=== PATIENT | male | born 1950 | race Caucasian/White ===

== ENCOUNTER 2021-04-22 07:15 | Inpatient (IN) ==
[2021-04-22 09:18] LABS: Basophils # 0.1 K/mcL (0.0-0.2); Eosinophils # 0.5 K/mcL (0.0-0.6); Hematocrit 43.9 % (37.5-50.1); Hemoglobin 14.2 g/dL (12.9-16.9); Immature Granulocytes % 0.3 % (0-4); Lymphocytes # 0.9 K/mcL (0.6-4.6); Lymphocytes % 14.9 %; Mean Corpuscular HGB Conc 32.3 g/dL (31.6-35.5); Mean Corpuscular Volume 89.6 fL (83.0-100.0); Mean Platelet Volume 10.3 fL (9.4-12.4); Monocytes # 0.7 K/mcL (0.0-1.3); Monocytes % 11.9 %; Neutrophils # 3.8 K/mcL (1.6-8.9); Platelet Count 239 K/mcL (140-400); Red Cell Distribution Width 14.1 % (11.5-14.5); Segmented Neutrophils % 63.9 %; White Blood Count 5.9 K/mcL (4.3-11.1)
[2021-04-22 09:35] LABS: BUN/Creatinine Ratio 19 (6-26); Blood Urea Nitrogen 19 mg/dL (8-23); Calcium 8.8 mg/dL (8.6-10.3); Carbon Dioxide 27 mEq/L (23-29); Chloride 102 mEq/L (98-107); Glucose 109 mg/dL (70-105); Osmolality,Calculated 283 (280-300); Potassium 4.2 mEq/L (3.5-5.1); Sodium 135 mEq/L (136-145); eGFR For African Americans > 60 (> 60); eGFR For Non-African Americans > 60 (> 60)
[2021-04-22] MEDS ORDERED: Ondansetron 4 MG/2 ML VIAL IVP PRN (10:54)
[2021-04-22] MEDS ORDERED: Naloxone 0.4 MG/ML INJ IVP PRN (10:54)
[2021-04-22] MEDS ORDERED: *HR* HYDROcodone/Acet 5/325 mg TABLET PO PRN (11:08)
[2021-04-22] MEDS: cefTRIAXone 2,000 MG in Water for inj. (sterile) 10 ML IVP SCH (12:29)
[2021-04-22] MEDS: 0.9 % Sodium Chloride 1,000 ML IVC SCH ×2 (12:30→20:26)
[2021-04-22] MEDS: *HR* Heparin 5,000 UNIT/ML VIAL SQ SCH (20:23)
[2021-04-22] MEDS ORDERED: NIFEdipine Immed Rel 10 MG CAPSULE PO ONE (23:45)
[2021-04-23] MEDS: *HR* Heparin 5,000 UNIT/ML VIAL SQ SCH ×2 (05:11→16:58)
[2021-04-23 05:51] LABS: Basophils # 0.1 K/mcL (0.0-0.2); Basophils % 0.9 %; Eosinophils # 0.5 K/mcL (0.0-0.6); Eosinophils % 9.3 %; Hematocrit 38.7 % (37.5-50.1); Immature Granulocytes % 0.2 % (0-4); Lymphocytes # 1.1 K/mcL (0.6-4.6); Lymphocytes % 19.8 %; Mean Corpuscular HGB Conc 33.6 g/dL (31.6-35.5); Mean Corpuscular Hemoglobin 29.7 pg (28.0-33.3); Mean Corpuscular Volume 88.6 fL (83.0-100.0); Mean Platelet Volume 10.4 fL (9.4-12.4); Monocytes # 0.7 K/mcL (0.0-1.3); Monocytes % 12.1 %; Neutrophils # 3.3 K/mcL (1.6-8.9); Platelet Count 202 K/mcL (140-400); Red Blood Count 4.37 M/mcL (4.19-5.50); Red Cell Distribution Width 13.9 % (11.5-14.5); Segmented Neutrophils % 57.7 %; White Blood Count 5.7 K/mcL (4.3-11.1)
[2021-04-23 07:52] LABS: BUN/Creatinine Ratio 21 (6-26); Blood Urea Nitrogen 17 mg/dL (8-23); Calcium 8.5 mg/dL (8.6-10.3); Carbon Dioxide 25 mEq/L (23-29); Chloride 105 mEq/L (98-107); Glucose 89 mg/dL (70-105); Magnesium 1.9 mg/dL (1.6-2.6); Osmolality,Calculated 285 (280-300); Phosphorous 3.6 mg/dL (2.7-4.5); Sodium 137 mEq/L (136-145); eGFR For African Americans > 60 (> 60); eGFR For Non-African Americans > 60 (> 60)
[2021-04-23] MEDS ORDERED: lisinopriL 5 MG TABLET PO SCH (09:00)
[2021-04-23] MEDS: cefTRIAXone 2,000 MG in Water for inj. (sterile) 10 ML IVP SCH (12:08)
[2021-04-23] MEDS ORDERED: *HR* FentaNYL (PF) 100 MCG/2 ML VIAL IVP PRN ×2 (14:28→15:54)
[2021-04-23] MEDS ORDERED: *HR* HYDROcodone/Acet 7.5/325 mg TABLET PO PRN ×2 (14:28→15:54)
[2021-04-23] MEDS ORDERED: Ondansetron 4 MG/2 ML VIAL IVP PRN ×3 (14:28→15:54)
[2021-04-23] MEDS ORDERED: *HR* Propofol 200 MG/20 ML VIAL IVP ONE (14:30)
[2021-04-23] MEDS ORDERED: Ringers Solution, Lactated 1,000 ML IVC SCH ×2 (14:30→15:54)
[2021-04-23] MEDS ORDERED: Lidocaine -MPF 2% 2 ML VIAL ONE (14:31)
[2021-04-23] MEDS ORDERED: Lidocaine/EPI 1:100k 1% 50 ML VIAL ONE (15:09)
[2021-04-23] MEDS ORDERED: *HR* HYDROcodone/Acet 5/325 mg TABLET PO PRN (15:54)
[2021-04-23] MEDS ORDERED: Naloxone 0.4 MG/ML INJ IVP PRN (15:54)
[2021-04-23] MEDS ORDERED: lisinopriL 10 MG TABLET PO ONE (18:15)
[2021-04-23] MEDS ORDERED: Vancomycin 1,250 MG/262.5 ML IV.SOLN IVPB SCH (23:45)
[2021-04-24] MEDS: *HR* Heparin 5,000 UNIT/ML VIAL SQ SCH (06:07)
[2021-04-24 06:22] LABS: Basophils # 0.1 K/mcL (0.0-0.2); Eosinophils # 0.5 K/mcL (0.0-0.6); Eosinophils % 8.1 %; Hematocrit 41.2 % (37.5-50.1); Hemoglobin 13.5 g/dL (12.9-16.9); Immature Granulocytes % 0.3 % (0-4); Lymphocytes # 1.3 K/mcL (0.6-4.6); Lymphocytes % 22.6 %; Mean Corpuscular HGB Conc 32.8 g/dL (31.6-35.5); Mean Corpuscular Hemoglobin 28.8 pg (28.0-33.3); Mean Platelet Volume 10.5 fL (9.4-12.4); Monocytes # 0.6 K/mcL (0.0-1.3); Monocytes % 10.3 %; Neutrophils # 3.3 K/mcL (1.6-8.9); Platelet Count 208 K/mcL (140-400); Red Blood Count 4.68 M/mcL (4.19-5.50); Red Cell Distribution Width 14.1 % (11.5-14.5); Segmented Neutrophils % 57.7 %; White Blood Count 5.8 K/mcL (4.3-11.1)
[2021-04-24 06:40] VITALS: BP 156/87; PULSE 74; TEMP 97.8; O2SAT 98
[2021-04-24 06:46] LABS: BUN/Creatinine Ratio 19 (6-26); Blood Urea Nitrogen 16 mg/dL (8-23); Calcium 8.4 mg/dL (8.6-10.3); Carbon Dioxide 24 mEq/L (23-29); Chloride 105 mEq/L (98-107); Glucose 93 mg/dL (70-105); Osmolality,Calculated 283 (280-300); Potassium 4.1 mEq/L (3.5-5.1); Sodium 136 mEq/L (136-145); eGFR For African Americans > 60 (> 60); eGFR For Non-African Americans > 60 (> 60)
[2021-04-24] MEDS ORDERED: lisinopriL 5 MG TABLET PO SCH ×2 (09:00)
[2021-04-24] MEDS ORDERED: cefTRIAXone 2,000 MG in Water for inj. (sterile) 10 ML IVP SCH (12:00)
== END 2021-04-24 10:52 | disposition home or self-care (01) | DRG 513 ==
LOC: EMEROOARM 07:15 → 3NENU 07:15 → SUATTDRO 16:14
PROVIDERS: ADMIT Student in an Organized Health Care Education/Training Program; ATTEND General Practice